=== PATIENT | female | born 1995 | race Caucasian/White ===

== ENCOUNTER 2017-11-17 12:06 | Emergency (ER) | payer BC, MEDICAID, OTHER ==
[~2017-11-17] VITALS: Ht 160 cm; Wt 85.7 kg
[2017-11-17 13:19] LABS: Potassium 3.7 mmol/L (3.5-5.1)
[2017-11-17 14:23] VITALS: BP 113/77
[2017-11-17] MEDS ORDERED: diphenhdrAMINE HCL 50 MG/1 ML VL IM ONE (15:00)
== END 2017-11-17 15:21 | disposition home or self-care (01) ==
LOC: ER 12:06
DX: F41.1 Generalized anxiety disorder (principal); R07.89 Other chest pain; Z88.0 Allergy status to penicillin
CPT/HCPCS: 36415; 71046; 83735; 84132; 84484; 93005; 96372; 99285; J1200

== ENCOUNTER 2023-06-12 12:18 | Emergency (ER) | payer MEDICAID ==
[~2023-06-12] VITALS: Ht 167.6 cm; Wt 109.0 kg
[2023-06-12 13:04] LABS: Basophils # (auto) 0 10 ^3/uL (0-0.2); Eosinophils # (auto) 0.2 10 ^3/uL (0-0.8); Hemoglobin 12.7 g/dL (12.2-16.2); Lymphocytes # (auto) 2.4 10 ^3/uL (0.4-5.4); White Blood Cell 7.2 10^3/uL (4.4-10.8)
[2023-06-12 13:06] LABS: Basophils % (auto) 0.2 % (0.0-2.0); Eosinophils % (auto) 2.3 % (0.0-7.0); Hematocrit 39.2 % (36.0-46.0); Lymphocytes % (auto) 33.4 % (10.0-50.0); Mean Corpuscular Hemoglobin 25.4 pg (28.0-32.0); Mean Corpuscular Hgb Conc. 32.4 g/dL (32.0-36.0); Mean Corpuscular Volume 78.6 fL (80.0-100.0); Monocytes # (auto) 0.7 10 ^3/uL (0-1.3); Monocytes % (auto) 9.1 % (0.0-12.0); Nucleated Red Blood Cells % 0.1 %; Red Blood Cells 4.98 10^6/uL (4.0-5.20); Red Cell Distribution Width 15.7 % (11.8-14.3)
[2023-06-12 13:09] LABS: Albumin 3.7 g/dL (3.4-5.0); Calcium 8.9 mg/dL (8.5-10.1); Magnesium 2.3 mg/dL (1.6-2.6); Potassium 4.1 mmol/L (3.5-5.1)
[2023-06-12 13:12] LABS: BUN/Creatinine Ratio 17.4 (10.0-20.0); Bilirubin, Total 0.6 mg/dL (0.2-1.0); Total Protein 7.3 g/dL (6.4-8.2)
[2023-06-12 13:21] LABS: INR 1.04 (0.9-1.15); Partial Thromboplastin Time 27.1 SEC (24.5-34.5); Prothrombin Time 10.9 sec (9.3-11.8)
[2023-06-12] MEDS ORDERED: ASPirin 325 MG TAB PO ONE (14:45)
[2023-06-12 16:29] VITALS: BP 110/67; PULSE 51; RESP 15; TEMP 98.1; O2SAT 99
== END 2023-06-12 16:32 | disposition home or self-care (01) ==
LOC: EDBD 12:18 → ER 12:18
DX: R07.89 Other chest pain (principal); I10 Essential (primary) hypertension; R88.0 Cloudy (hemodialysis) (peritoneal) dialysis effluent
CPT/HCPCS: 36415; 71045; 80053; 83735; 83880; 84484; 85025; 85379; 85610; 85730; 93005